=== PATIENT | female | born 1930 | race Caucasian/White ===

== ENCOUNTER 2017-01-01 20:28 | Inpatient (IN) ==
--- NOTE | 2017-01-01 20:56 | Emergency Department Note ---
Disposition Clinical Impression: Generalized weakness, Decreased appetite, Decreased ambulation status, BYRON ( acute kidney injury), Dehydration Stage II pressure ulcer of buttock Qualifiers: Laterality: right Qualified Code(s): L89.312 - Pressure ulcer of right buttock , stage 2 Pressure ulcer of unspecified buttock, stage 1 Qualifiers: Laterality: unspecified laterality Qualified Code(s): L89.301 - Pressure ulcer of unspecified buttock, stage 1 Disposition: Admitted As Inpatient Condition: Fair Referrals: NO,PCP [Primary Care Provider] - Forms: ED Satisfaction Letter Time of Disposition: 22:13 GI Bleed HPI - General Chief complaint: ED GI Bleed Stated complaint: rectal bleeding, bruising in inner thighs,bedsores Time Seen by Provider: 01/01/17 20:42 Source: family Mode of arrival: ambulatory Limitations: age Nursing Notes Reviewed: Yes Vital Signs Reviewed: Yes - History of Present Illness HPI Narrative: Patient is an 86-year-old female with past HISTORY of diabetes, hypertension, dementia. She presents today accompanied by her daughter and mattress weaver. Daughter states that the patient was recently staying in snf in [place]. She was recently brought home yesterday due to concern of improper care at the snf. Once home, daughter noticed that she was generally weak, had a bedsore on right buttocks, and lesions on the anterior thighs, also had black stools that were concerning for blood. She brought her into the ED tonight for further evaluation. She also states that the patient has not been eating well for the past 2 months. She was unaware that the situations going on the patient has been living in a nursing facility [place]. Currently, the patient denies any chest pain, shortness breath, nausea, vomiting, fevers, abdominal pain, burning with urination, blood in urine, blood in stool. Patient says she cannot remember how she got lesions on inner thighs, denies scratching. - Related Data Allergies Allergy/AdvReac Type Severity Reaction Status Date / Time No Known Allergies Allergy Verified 01/01/17 20:34 All systems ED: reviewed and negative except as stated. Past Medical History - Past Medical History Attestation: Yes The following information was validated with the patient. Medical history: Reports: diabetes, hypertension Psychiatric history: Reports: depression - Social History Smoking Status: Never smoker Alcohol use: Reports: none Drug use: Reports: none Physical Exam - General Limitations: age General appearance: alert, in no apparent distress - Head Head exam: atraumatic, normocephalic, normal inspection - Eye Eye exam: Present: normal appearance, PERRL, EOMI - ENT ENT exam: normal exam, normal oropharynx, mucous membranes moist - Neck Neck exam: Present: normal inspection, full ROM, trachea midline - Chest Chest inspection: Present: normal inspection, symmetric chest wall rise - Respiratory Respiratory exam: Present: normal lung sounds bilaterally. Absent: respiratory distress, wheezes, stridor, accessory muscle use - Cardiovascular Cardiovascular exam: Present: regular rate, normal rhythm, normal heart sounds - Abdominal Exam Abdominal exam: Present: soft, Non-Tender. Absent: tenderness, distention, guarding, rebound, rigidity - Rectal Exam Rectal exam: Present: normal rectal tone, black stool, hemorrhoids - Extremities Exam Extremities exam: Present: normal inspection, full ROM. Absent: tenderness, pedal edema - Back Exam Back exam: Present: normal inspection, full ROM. Absent: tenderness - Neurological Exam Neurological exam: Present: alert, oriented X3, CN II-XII intact. Absent: motor sensory deficit - Psychiatric Psychiatric exam: Present: normal mood, flat affect, other (pleasantly demented) - Skin Skin exam: Present: warm, dry, intact, normal color, other (Linear lesions on the inner thighs with one large excoriation on the right proximal thigh that is scabbed over, approx 4cm in length. Large stage 1 redness on bilateral gluteal region with 3cm by 2cm stage 2 ulceration of right buttocks.) Course Course Narrative: Vitals within normal limits on my exam. Physical exam showed pleasantly demented 86-year-old, skin exam shows Linear lesions on the inner thighs with one large excoriation on the right proximal thigh that is scabbed over, approx 4cm in length. Large stage 1 redness on bilateral gluteal region with 3cm by 2cm stage 2 ulceration of right buttocks. Rectal exam shows black stools, will send for hemoccult. Otherwise, the rest of the physical exam is benign. Due to generalized weakness, will obtain basic labs, EKG, chest x-ray, troponin, abdominal labs. 22:03 patient has a leukocytosis. Negative UA. BMP shows creatinine at 3.14, BUN at 60. Chest x-ray negative for any acute cardiopulmonary process. EKG shows normal sinus rhythm with no acute ST changes. Currently waiting a troponin level. Otherwise, will admit patient for dehydration, acute kidney injury, decreased stimulation status, develops weakness, stage II pressure ulcer of the right buttocks, stage I pressure ulcer of the left buttocks, malnutrition. 22:13 [facility] accepts. Requested blood cultures. 1L bolus NS ordered. Vital Signs Temperature 97.6 F 01/01/17 20:32 Pulse Rate 100 01/01/17 20:32 Respiratory Rate 18 01/01/17 20:32 Blood Pressure 133/73 01/01/17 20:32 O2 Sat by Pulse Oximetry 94 L 01/01/17 20:32 Temperature 97.6 F 01/01/17 20:32 Pulse Rate 85 01/01/17 21:41 Respiratory Rate 18 01/01/17 21:41 Blood Pressure 133/73 01/01/17 20:32 O2 Sat by Pulse Oximetry 95 01/01/17 21:41 Oxygen Delivery Oxygen Delivery Room Air GI Bleed - [facility] Narrative Medical decision making narrative: Vitals within normal limits on my exam. Physical exam showed pleasantly demented 86-year-old, skin exam shows Linear lesions on the inner thighs with one large excoriation on the right proximal thigh that is scabbed over, approx 4cm in length. Large stage 1 redness on bilateral gluteal region with 3cm by 2cm stage 2 ulceration of right buttocks. Rectal exam shows black stools, will send for hemoccult. Otherwise, the rest of the physical exam is benign. Due to generalized weakness, will obtain basic labs, EKG, chest x-ray, troponin, abdominal labs. 22:03 patient has a leukocytosis. Negative UA. BMP shows creatinine at 3.14, BUN at 60. Chest x-ray negative for any acute cardiopulmonary process. EKG shows normal sinus rhythm with no acute ST changes. Currently waiting a troponin level. Otherwise, will admit patient for dehydration, acute kidney injury, decreased stimulation status, develops weakness, stage II pressure ulcer of the right buttocks, stage I pressure ulcer of the left buttocks, malnutrition. 22:13 [facility] accepts. Requested blood cultures. 1L bolus NS ordered. - Medical Records Medical records reviewed: Yes I reviewed the patient's medical records. - Lab Data Lab results reviewed: Yes I reviewed the patient's lab results. Result diagrams: 01/01/17 21:26 01/01/17 21:26 Lab Results 01/01/17 01/01/17 01/01/17 Range/Units 20:53 21:15 21:26 WBC 14.9 H (4.3-11.1) K/mcL RBC 4.11 (3.82-4.97) M/mcL Hgb 12.0 (11.5-15.4) g/dL Hct 36.4 (35.3-44.9) % MCV 88.6 (83.0-100.0) fL MCH 29.2 (28.0-33.3) pg MCHC 33.0 (31.6-35.5) g/dL RDW 14.2 (11.5-14.5) % Plt Count 499 H (140-400) K/mcL MPV 10.2 (9.4-12.4) fL Immature Gran % 0.7 (0-4) % Seg Neutrophils % 81.6 % Lymphocytes % 9.1 % Monocytes % 8.0 % Eosinophils % 0.2 % Basophils % 0.4 % Neutrophils # 12.2 H (1.6-8.9) K/mcL Lymphocytes # 1.4 (0.6-4.6) K/mcL Monocytes # 1.2 (0.0-1.3) K/mcL Eosinophils # 0.0 (0.0-0.6) K/mcL Basophils # 0.1 (0.0-0.2) K/mcL Sodium (136-145) mEq/L Potassium (3.5-4.5) mEq/L Chloride (98-109) mEq/L Carbon Dioxide (19-29) mEq/L BUN (7-20) mg/dL Creatinine (0.57-1.11) mg/dL Est GFR ( Amer) (> 60) Est GFR (Non-Af Amer) (> 60) BUN/Creatinine Ratio (6-26) Glucose (70-99) mg/dL Calculated Osmolality (280-300) Lactic Acid (0.5-2.2) mmol/L Calcium (8.6-10.8) mg/dL Total Bilirubin (0.2-1.2) mg/dL Direct Bilirubin (0.0-0.5) mg/dL Indirect Bilirubin (0.0-1.2) mg/dL AST (5-34) Units/L ALT (0-55) Units/L Alkaline Phosphatase (38-126) Units/L Troponin I (0-0.03) ng/mL Serum Total Protein (6.0-8.3) g/dL Albumin (3.5-5.0) g/dL Globulin (2.4-3.5) g/dL Albumin/Globulin Ratio (1.1-2.2) Lipase (8-78) Units/L Urine Color Yellow (Yellow) Urine Clarity Cloudy A (Clear) Urine pH 5.0 (5.0-8.0) pH Units Ur Specific [place] 1.013 (1.010-1.025) Urine Protein Negative (Neg-Trace) mg/dL Urine Glucose (UA) Normal (Normal) mg/dL Urine Ketones Negative (Negative) mg/dL Urine Blood Negative (Negative) Urine Nitrite Negative (Negative) Urine Bilirubin Moderate H (Negative) Urine Urobilinogen Normal (Normal) mg/dL Ur Leukocyte Esterase Negative (Negative) Urine Microscopic RBC 0-3 (0-3) per hpf Urine Microscopic WBC 0-3 (0-3) per hpf Ur Squamous Epith Cells Many H (None-Few) per lpf Urine Bacteria None Seen (None-Few) per hpf Hyaline Casts None Seen (None-Few) per lpf Ur Culture Indicated? NO (NO) Stool Occult Blood Negative (Negative) 01/01/17 01/01/17 01/01/17 Range/Units 21:26 21:26 21:26 WBC (4.3-11.1) K/mcL RBC (3.82-4.97) M/mcL Hgb (11.5-15.4) g/dL Hct (35.3-44.9) % MCV (83.0-100.0) fL MCH (28.0-33.3) pg MCHC (31.6-35.5) g/dL RDW (11.5-14.5) % Plt Count (140-400) K/mcL MPV (9.4-12.4) fL Immature Gran % (0-4) % Seg Neutrophils % % Lymphocytes % % Monocytes % % Eosinophils % % Basophils % % Neutrophils # (1.6-8.9) K/mcL Lymphocytes # (0.6-4.6) K/mcL Monocytes # (0.0-1.3) K/mcL Eosinophils # (0.0-0.6) K/mcL Basophils # (0.0-0.2) K/mcL Sodium 133 L (136-145) mEq/L Potassium 3.5 (3.5-4.5) mEq/L Chloride 90 L (98-109) mEq/L Carbon Dioxide 25 (19-29) mEq/L BUN 60 H (7-20) mg/dL Creatinine 3.14 H (0.57-1.11) mg/dL Est GFR ( Amer) 17 L (> 60) Est GFR (Non-Af Amer) 14 L (> 60) BUN/Creatinine Ratio 19 (6-26) Glucose 223 H (70-99) mg/dL Calculated Osmolality 300 (280-300) Lactic Acid 2.2 (0.5-2.2) mmol/L Calcium 9.7 (8.6-10.8) mg/dL Total Bilirubin 0.6 (0.2-1.2) mg/dL Direct Bilirubin (0.0-0.5) mg/dL Indirect Bilirubin (0.0-1.2) mg/dL AST 24 (5-34) Units/L ALT 12 (0-55) Units/L Alkaline Phosphatase 57 (38-126) Units/L Troponin I 0.03 (0-0.03) ng/mL Serum Total Protein 7.4 (6.0-8.3) g/dL Albumin 2.8 L (3.5-5.0) g/dL Globulin 4.6 H (2.4-3.5) g/dL Albumin/Globulin Ratio 0.6 L (1.1-2.2) Lipase (8-78) Units/L Urine Color (Yellow) Urine Clarity (Clear) Urine pH (5.0-8.0) pH Units Ur Specific [place] (1.010-1.025) Urine Protein (Neg-Trace) mg/dL Urine Glucose (UA) (Normal) mg/dL Urine Ketones (Negative) mg/dL Urine Blood (Negative) Urine Nitrite (Negative) Urine Bilirubin (Negative) Urine Urobilinogen (Normal) mg/dL Ur Leukocyte Esterase (Negative) Urine Microscopic RBC (0-3) per hpf Urine Microscopic WBC (0-3) per hpf Ur Squamous Epith Cells (None-Few) per lpf Urine Bacteria (None-Few) per hpf Hyaline Casts (None-Few) per lpf Ur Culture Indicated? (NO) Stool Occult Blood (Negative) 01/01/17 Range/Units 21:26 WBC (4.3-11.1) K/mcL RBC (3.82-4.97) M/mcL Hgb (11.5-15.4) g/dL Hct (35.3-44.9) % MCV (83.0-100.0) fL MCH (28.0-33.3) pg MCHC (31.6-35.5) g/dL RDW (11.5-14.5) % Plt Count (140-400) K/mcL MPV (9.4-12.4) fL Immature Gran % (0-4) % Seg Neutrophils % % Lymphocytes % % Monocytes % % Eosinophils % % Basophils % % Neutrophils # (1.6-8.9) K/mcL Lymphocytes # (0.6-4.6) K/mcL Monocytes # (0.0-1.3) K/mcL Eosinophils # (0.0-0.6) K/mcL Basophils # (0.0-0.2) K/mcL Sodium (136-145) mEq/L Potassium (3.5-4.5) mEq/L Chloride (98-109) mEq/L Carbon Dioxide (19-29) mEq/L BUN (7-20) mg/dL Creatinine (0.57-1.11) mg/dL Est GFR ( Amer) (> 60) Est GFR (Non-Af Amer) (> 60) BUN/Creatinine Ratio (6-26) Glucose (70-99) mg/dL Calculated Osmolality (280-300) Lactic Acid (0.5-2.2) mmol/L Calcium (8.6-10.8) mg/dL Total Bilirubin 0.6 (0.2-1.2) mg/dL Direct Bilirubin 0.3 (0.0-0.5) mg/dL Indirect Bilirubin 0.3 (0.0-1.2) mg/dL AST 23 (5-34) Units/L ALT 13 (0-55) Units/L Alkaline Phosphatase 58 (38-126) Units/L Troponin I (0-0.03) ng/mL Serum Total Protein 7.4 (6.0-8.3) g/dL Albumin 2.8 L (3.5-5.0) g/dL Globulin 4.6 H (2.4-3.5) g/dL Albumin/Globulin Ratio 0.6 L (1.1-2.2) Lipase 32 (8-78) Units/L Urine Color (Yellow) Urine Clarity (Clear) Urine pH (5.0-8.0) pH Units Ur Specific [place] (1.010-1.025) Urine Protein (Neg-Trace) mg/dL Urine Glucose (UA) (Normal) mg/dL Urine Ketones (Negative) mg/dL Urine Blood (Negative) Urine Nitrite (Negative) Urine Bilirubin (Negative) Urine Urobilinogen (Normal) mg/dL Ur Leukocyte Esterase (Negative) Urine Microscopic RBC (0-3) per hpf Urine Microscopic WBC (0-3) per hpf Ur Squamous Epith Cells (None-Few) per lpf Urine Bacteria (None-Few) per hpf Hyaline Casts (None-Few) per lpf Ur Culture Indicated? (NO) Stool Occult Blood (Negative) - Radiology Data Radiology results reviewed: Yes I reviewed the patient's radiology results. Chest X-Ray 01/01/17 20:54 IMPRESSION: No acute cardiopulmonary abnormality detected. D/ / Han Astudillo MD / Han Astudillo MD Interpreting Provider: Han Astudillo MD - EKG Data EKG attestation: Yes I reviewed and interpreted this EKG. EKG results narrative: 01/01/2017 at 21:12. Normal sinus rhythm. Rate 77. QTC 423. No acute ST elevation or depression. Q wave in lead 2, 3, aVF. No previous EKG for comparison. S.B.A.R. - S.B.A.R. Situation: Demographics, MOA Background: Presenting Complaint, Relevant PMH, Meds, & Allergies Assessment: Vital Signs, Course and respsone to treatment, Exam Concerns, Patient/Family Expectation, Pertinant Lab Results, Outstanding Labs Recommendation: Barrier(s) to disposition, Recommendation based on pending studies, treatments, or consults Josefa Report Given to: Gina Rivero Repor Time: 22:00
[2017-01-01 21:32] LABS: Basophils # 0.1 K/mcL (0.0-0.2); Basophils % 0.4 %; Eosinophils % 0.2 %; Hematocrit 36.4 % (35.3-44.9); Immature Granulocytes % 0.7 % (0-4); Lymphocytes # 1.4 K/mcL (0.6-4.6); Lymphocytes % 9.1 %; Mean Corpuscular Hemoglobin 29.2 pg (28.0-33.3); Mean Corpuscular Volume 88.6 fL (83.0-100.0); Mean Platelet Volume 10.2 fL (9.4-12.4); Monocytes # 1.2 K/mcL (0.0-1.3); Neutrophils # 12.2 K/mcL (1.6-8.9); Platelet Count 499 K/mcL (140-400); Red Blood Count 4.11 M/mcL (3.82-4.97); Red Cell Distribution Width 14.2 % (11.5-14.5); Segmented Neutrophils % 81.6 %
[2017-01-01 21:38] LABS: Bilirubin,Urine Moderate (Negative); Blood,Urine Negative (Negative); Clarity,Urine Cloudy (Clear); Color,Urine Yellow (Yellow); Glucose,Urine (UA) Normal (Normal); Ketones,Urine Negative (Negative); Leukocyte Esterase,Urine Negative (Negative); Nitrite,Urine Negative (Negative); Protein,Urine Negative (Neg-Trace); Specific Gravity,Urine 1.013 (1.010-1.025); Urobilinogen,Urine Normal (Normal)
[2017-01-01 21:40] LABS: Bacteria,Urine None Seen per hpf (None-Few); Hyaline Casts,Urine None Seen per lpf (None-Few); RBC,Urine 0-3 per hpf (0-3); Squamous Epithelial Cell,Urine Many per lpf (None-Few); WBC,Urine 0-3 per hpf (0-3)
[2017-01-01 21:48] LABS: Albumin 2.8 g/dL (3.5-5.0); Albumin/Globulin Ratio 0.6 (1.1-2.2); Bilirubin,Total 0.6 mg/dL (0.2-1.2); Calcium 9.7 mg/dL (8.6-10.8); Globulin 4.6 g/dL (2.4-3.5); Potassium 3.5 mEq/L (3.5-4.5); Total Protein 7.4 g/dL (6.0-8.3)
[2017-01-01 21:49] LABS: Albumin 2.8 g/dL (3.5-5.0); Albumin/Globulin Ratio 0.6 (1.1-2.2); Bilirubin,Direct 0.3 mg/dL (0.0-0.5); Bilirubin,Indirect 0.3 mg/dL (0.0-1.2); Bilirubin,Total 0.6 mg/dL (0.2-1.2); Globulin 4.6 g/dL (2.4-3.5); Total Protein 7.4 g/dL (6.0-8.3)
--- NOTE | 2017-01-01 22:08 | Emergency Department Note ---
Disposition Clinical Impression: Generalized weakness, Decreased appetite, Decreased ambulation status, BYRON ( acute kidney injury), Dehydration Stage II pressure ulcer of buttock Qualifiers: Laterality: right Qualified Code(s): L89.312 - Pressure ulcer of right buttock , stage 2 Pressure ulcer of unspecified buttock, stage 1 Qualifiers: Laterality: unspecified laterality Qualified Code(s): L89.301 - Pressure ulcer of unspecified buttock, stage 1 Disposition: Admitted As Inpatient Condition: Fair Referrals: NO,PCP [Primary Care Provider] - Forms: ED Satisfaction Letter General Adult HPI - General Chief complaint: ED GI Bleed Stated complaint: rectal bleeding, bruising in inner thighs,bedsores Time Seen by Provider: 01/01/17 20:42 Source: family Mode of arrival: ambulatory Limitations: age - History of Present Illness Pain Scale: 0 - Related Data Allergies Allergy/AdvReac Type Severity Reaction Status Date / Time No Known Allergies Allergy Verified 01/01/17 20:34 Past Medical History - Past Medical History Medical history: Reports: diabetes, hypertension Psychiatric history: Reports: depression - Social History Smoking Status: Never smoker Alcohol use: Reports: none Drug use: Reports: none Physical Exam - General Limitations: age General appearance: alert, in no apparent distress Course - Reevaluation(s) Reevaluation #1: I saw the patient with the resident, Dr. Hooper. Patient is brought to the emergency department by family who took her out of the [facility] yesterday and brought her home. They noticed some bruising injuries that they wanted evaluated. They are concerned about her eating as well. Here in the department she does have some bruising and she has a mild decubitus ulcer on her buttocks. Family is concerned that she was not treated well at the previous [facility]. There was concern about black stool but the stool was guaiac negative. We believe this asked was related to iron supplements. Laboratory workup was okay except for an elevated BUN and creatinine. We have no old labs to compare it to. I am suspicious that this is acute kidney injury secondary to dehydration given the BUN of 60 as well. I think is best to bring the patient in the hospital and hydrate her overnight and make sure she is to do. Family does not want her to go back to a [facility] and preferred to care for the patient at home. We will page the hospitalist for admission. Time: 22:08 Vital Signs Temperature 97.6 F 01/01/17 20:32 Pulse Rate 100 01/01/17 20:32 Respiratory Rate 18 01/01/17 20:32 Blood Pressure 133/73 01/01/17 20:32 O2 Sat by Pulse Oximetry 94 L 01/01/17 20:32 Temperature 97.6 F 01/01/17 20:32 Pulse Rate 85 01/01/17 21:41 Respiratory Rate 18 01/01/17 21:41 Blood Pressure 133/73 01/01/17 20:32 O2 Sat by Pulse Oximetry 95 01/01/17 21:41 Oxygen Delivery Oxygen Delivery Room Air Medical Decision Making - Lab Data Result diagrams: 01/01/17 21:26 01/01/17 21:26 Lab Results 01/01/17 01/01/17 01/01/17 Range/Units 20:53 21:15 21:26 WBC 14.9 H (4.3-11.1) K/mcL RBC 4.11 (3.82-4.97) M/mcL Hgb 12.0 (11.5-15.4) g/dL Hct 36.4 (35.3-44.9) % MCV 88.6 (83.0-100.0) fL MCH 29.2 (28.0-33.3) pg MCHC 33.0 (31.6-35.5) g/dL RDW 14.2 (11.5-14.5) % Plt Count 499 H (140-400) K/mcL MPV 10.2 (9.4-12.4) fL Immature Gran % 0.7 (0-4) % Seg Neutrophils % 81.6 % Lymphocytes % 9.1 % Monocytes % 8.0 % Eosinophils % 0.2 % Basophils % 0.4 % Neutrophils # 12.2 H (1.6-8.9) K/mcL Lymphocytes # 1.4 (0.6-4.6) K/mcL Monocytes # 1.2 (0.0-1.3) K/mcL Eosinophils # 0.0 (0.0-0.6) K/mcL Basophils # 0.1 (0.0-0.2) K/mcL Sodium (136-145) mEq/L Potassium (3.5-4.5) mEq/L Chloride (98-109) mEq/L Carbon Dioxide (19-29) mEq/L BUN (7-20) mg/dL Creatinine (0.57-1.11) mg/dL Est GFR ( Amer) (> 60) Est GFR (Non-Af Amer) (> 60) BUN/Creatinine Ratio (6-26) Glucose (70-99) mg/dL Calculated Osmolality (280-300) Lactic Acid (0.5-2.2) mmol/L Calcium (8.6-10.8) mg/dL Total Bilirubin (0.2-1.2) mg/dL Direct Bilirubin (0.0-0.5) mg/dL Indirect Bilirubin (0.0-1.2) mg/dL AST (5-34) Units/L ALT (0-55) Units/L Alkaline Phosphatase (38-126) Units/L Troponin I (0-0.03) ng/mL Serum Total Protein (6.0-8.3) g/dL Albumin (3.5-5.0) g/dL Globulin (2.4-3.5) g/dL Albumin/Globulin Ratio (1.1-2.2) Lipase (8-78) Units/L Urine Color Yellow (Yellow) Urine Clarity Cloudy A (Clear) Urine pH 5.0 (5.0-8.0) pH Units Ur Specific [place] 1.013 (1.010-1.025) Urine Protein Negative (Neg-Trace) mg/dL Urine Glucose (UA) Normal (Normal) mg/dL Urine Ketones Negative (Negative) mg/dL Urine Blood Negative (Negative) Urine Nitrite Negative (Negative) Urine Bilirubin Moderate H (Negative) Urine Urobilinogen Normal (Normal) mg/dL Ur Leukocyte Esterase Negative (Negative) Urine Microscopic RBC 0-3 (0-3) per hpf Urine Microscopic WBC 0-3 (0-3) per hpf Ur Squamous Epith Cells Many H (None-Few) per lpf Urine Bacteria None Seen (None-Few) per hpf Hyaline Casts None Seen (None-Few) per lpf Ur Culture Indicated? NO (NO) Stool Occult Blood Negative (Negative) 01/01/17 01/01/17 01/01/17 Range/Units 21:26 21:26 21:26 WBC (4.3-11.1) K/mcL RBC (3.82-4.97) M/mcL Hgb (11.5-15.4) g/dL Hct (35.3-44.9) % MCV (83.0-100.0) fL MCH (28.0-33.3) pg MCHC (31.6-35.5) g/dL RDW (11.5-14.5) % Plt Count (140-400) K/mcL MPV (9.4-12.4) fL Immature Gran % (0-4) % Seg Neutrophils % % Lymphocytes % % Monocytes % % Eosinophils % % Basophils % % Neutrophils # (1.6-8.9) K/mcL Lymphocytes # (0.6-4.6) K/mcL Monocytes # (0.0-1.3) K/mcL Eosinophils # (0.0-0.6) K/mcL Basophils # (0.0-0.2) K/mcL Sodium 133 L (136-145) mEq/L Potassium 3.5 (3.5-4.5) mEq/L Chloride 90 L (98-109) mEq/L Carbon Dioxide 25 (19-29) mEq/L BUN 60 H (7-20) mg/dL Creatinine 3.14 H (0.57-1.11) mg/dL Est GFR ( Amer) 17 L (> 60) Est GFR (Non-Af Amer) 14 L (> 60) BUN/Creatinine Ratio 19 (6-26) Glucose 223 H (70-99) mg/dL Calculated Osmolality 300 (280-300) Lactic Acid 2.2 (0.5-2.2) mmol/L Calcium 9.7 (8.6-10.8) mg/dL Total Bilirubin 0.6 (0.2-1.2) mg/dL Direct Bilirubin (0.0-0.5) mg/dL Indirect Bilirubin (0.0-1.2) mg/dL AST 24 (5-34) Units/L ALT 12 (0-55) Units/L Alkaline Phosphatase 57 (38-126) Units/L Troponin I 0.03 (0-0.03) ng/mL Serum Total Protein 7.4 (6.0-8.3) g/dL Albumin 2.8 L (3.5-5.0) g/dL Globulin 4.6 H (2.4-3.5) g/dL Albumin/Globulin Ratio 0.6 L (1.1-2.2) Lipase (8-78) Units/L Urine Color (Yellow) Urine Clarity (Clear) Urine pH (5.0-8.0) pH Units Ur Specific [place] (1.010-1.025) Urine Protein (Neg-Trace) mg/dL Urine Glucose (UA) (Normal) mg/dL Urine Ketones (Negative) mg/dL Urine Blood (Negative) Urine Nitrite (Negative) Urine Bilirubin (Negative) Urine Urobilinogen (Normal) mg/dL Ur Leukocyte Esterase (Negative) Urine Microscopic RBC (0-3) per hpf Urine Microscopic WBC (0-3) per hpf Ur Squamous Epith Cells (None-Few) per lpf Urine Bacteria (None-Few) per hpf Hyaline Casts (None-Few) per lpf Ur Culture Indicated? (NO) Stool Occult Blood (Negative) 01/01/17 Range/Units 21:26 WBC (4.3-11.1) K/mcL RBC (3.82-4.97) M/mcL Hgb (11.5-15.4) g/dL Hct (35.3-44.9) % MCV (83.0-100.0) fL MCH (28.0-33.3) pg MCHC (31.6-35.5) g/dL RDW (11.5-14.5) % Plt Count (140-400) K/mcL MPV (9.4-12.4) fL Immature Gran % (0-4) % Seg Neutrophils % % Lymphocytes % % Monocytes % % Eosinophils % % Basophils % % Neutrophils # (1.6-8.9) K/mcL Lymphocytes # (0.6-4.6) K/mcL Monocytes # (0.0-1.3) K/mcL Eosinophils # (0.0-0.6) K/mcL Basophils # (0.0-0.2) K/mcL Sodium (136-145) mEq/L Potassium (3.5-4.5) mEq/L Chloride (98-109) mEq/L Carbon Dioxide (19-29) mEq/L BUN (7-20) mg/dL Creatinine (0.57-1.11) mg/dL Est GFR ( Amer) (> 60) Est GFR (Non-Af Amer) (> 60) BUN/Creatinine Ratio (6-26) Glucose (70-99) mg/dL Calculated Osmolality (280-300) Lactic Acid (0.5-2.2) mmol/L Calcium (8.6-10.8) mg/dL Total Bilirubin 0.6 (0.2-1.2) mg/dL Direct Bilirubin 0.3 (0.0-0.5) mg/dL Indirect Bilirubin 0.3 (0.0-1.2) mg/dL AST 23 (5-34) Units/L ALT 13 (0-55) Units/L Alkaline Phosphatase 58 (38-126) Units/L Troponin I (0-0.03) ng/mL Serum Total Protein 7.4 (6.0-8.3) g/dL Albumin 2.8 L (3.5-5.0) g/dL Globulin 4.6 H (2.4-3.5) g/dL Albumin/Globulin Ratio 0.6 L (1.1-2.2) Lipase 32 (8-78) Units/L Urine Color (Yellow) Urine Clarity (Clear) Urine pH (5.0-8.0) pH Units Ur Specific [place] (1.010-1.025) Urine Protein (Neg-Trace) mg/dL Urine Glucose (UA) (Normal) mg/dL Urine Ketones (Negative) mg/dL Urine Blood (Negative) Urine Nitrite (Negative) Urine Bilirubin (Negative) Urine Urobilinogen (Normal) mg/dL Ur Leukocyte Esterase (Negative) Urine Microscopic RBC (0-3) per hpf Urine Microscopic WBC (0-3) per hpf Ur Squamous Epith Cells (None-Few) per lpf Urine Bacteria (None-Few) per hpf Hyaline Casts (None-Few) per lpf Ur Culture Indicated? (NO) Stool Occult Blood (Negative) Attestation Statement - Attestation Attestation: I, Dr. Conway, examined this patient [id number] and my medical decision- making was reviewed with Dr. Hooper, Resident Physician. I agree with the documented findings, disposition and treatment plan as described except to the extent set forth below. The see my progress note for details.
[2017-01-01] MEDS ORDERED: 0.9 % Sodium Chloride 1,000 ML IVC ONE (22:12)
[2017-01-01 22:23] LABS: Thyroid Stimulating Hormone 0.434 mcIU/mL (0.350-4.840)
[2017-01-01] MEDS ORDERED: *HR* OxyCODONE Immed Rel 5 MG TABLET PO PRN (23:10)
[2017-01-01] MEDS ORDERED: *HR* Dextrose 50 % in Water (Syg) 50 ML SYRINGE IVP PRN (23:10)
[2017-01-01] MEDS ORDERED: Naloxone 0.4 MG/ML INJ IVP PRN (23:10)
[2017-01-01] MEDS ORDERED: Ondansetron 4 MG/2 ML VIAL IVP PRN (23:10)
[2017-01-01] MEDS ORDERED: Acetaminophen 325 MG TABLET PO PRN (23:10)
[2017-01-01] MEDS ORDERED: *HR* Morphine 2 MG/ML SYRINGE IVP PRN (23:10)
[2017-01-01] MEDS ORDERED: D5% in Water 1,000 ML IV PRN (23:10)
[2017-01-01] MEDS ORDERED: Dextrose Gel 15 GM PO PRN ×2 (23:10)
[2017-01-01] MEDS ORDERED: 0.9 % Sodium Chloride 1,000 ML IVC SCH (23:15)
--- NOTE | 2017-01-01 23:46 | Internal Med History&Physical ---
Date of Encounter: 01/01/17 Time of Encounter: 23:00 Assessment and Plan (1) Adult failure to thrive Status: Acute . (2) At risk for accident in home Status: Acute . (3) At risk for activity intolerance Status: Acute . (4) At risk for acute confusion Status: Acute . (5) Dementia arising in the senium and presenium Status: Chronic . (6) Obesity (BMI 30-39.9) Status: Chronic . (7) Decreased appetite Status: Acute . (8) Dehydration Status: Resolved . (9) Generalized weakness Status: Acute . (10) Pressure ulcer of unspecified buttock, stage 1 Status: Acute . Qualifiers: Laterality: unspecified laterality Qualified Code(s): L89.301 - Pressure ulcer of unspecified buttock, stage 1 (11) Stage II pressure ulcer of buttock Status: Acute . Qualifiers: Laterality: right Qualified Code(s): L89.312 - Pressure ulcer of right buttock, stage 2 Internal Medicine - H&P: HPI Chief complaint: Bedsores. Generalized weakness. Admitted From: Emergency Dept Plans for Post Hospital Care: Home History of present illness: Ms. Prescott is a 86 year old female with history significant for dementia unspecified, type 2 DM, depression and anxiety, iron deficiency, anemia chronic disease, GERD, hypertension, obesity, nonsmoker The patient was visited and interviewed and examined. Patient presents as a non -historian of circumstances due to apparent dementia unspecified. Details are collected from family and emergency department triage patient. The patient is admitted to [facility] via the emergency department when she presents in the company of family with concerns related failure to thrive in adult. Daughter presents as caregiver next 10 reporting the patient had recently been in halfway in [place] and was removed on the day of presenting to this facility pertaining to concern over the care she received there. Daughter reports generalized weakness diminished appetite and decreased ambulation status , bedsores right buttock lesions on the anterior thighs and no black stools concerning for blood diminished appetite has been progressive over the last 2 months. The patient presents with advanced dementia and denies any significant problems. Simply states that she cannot remember. Cannot remember how she received lesions on her inner thighs denies active scratching. Findings in the ED: Temperature 97.6 pulse 85-100 respiration 18 BP 133/73. O2 saturation 95% room air. WBC 14.9 hemoglobin 12 platelet 499,000. Differential showed an increase in neutrophils. Urinalysis demonstrated moderate bilirubin. RBC 3. WBC 3.many squamous epithelial cells. Metabolic panel sodium 133 chloride 90. BUN 16 creatinine 3.14. GFR 14. Glucose 223 possible elevated 300. Lactic acid 2.2. Hepatic function normal. Albumin 2.8 total 7.4. Troponin 0.03. Lipase 32. EKG normal sinus rhythm. Rate 77. No acute ischemic changes. Q-wave lead to 3 aVF 8 indeterminate event. We will injury. Portable chest x-ray demonstrated no acute or active cardiopulmonary process. Degenerative changes are noted incidentally. No acute osseous abnormalities seen. Preliminary impression demonstrates concern for black stool and potential bleeding was likely due to chronic iron supplementation for iron deficiency anemia. No evidence for active bleeding though I need an EGD. Multiple decubitus ulceration of her pillbox noted. Acute on chronic renal failure stage 5.. Likely prerenal and secondary to severe dehydration. Systemic inflammatory response syndrome criteria met at the time of admission. Patient is acute on chronically ill. No evidence for acute infection issue been disclosed. Modest electrolyte and metabolic derangements noted. She presents as a non-historian of [facility] due to moderate to severe dementia. The patient presents risk for further acute clinical decline and morbidity given her presenting chief complaints, findings and comorbid condition. Cumulative laboratory and radiographic data base was reviewed, considered and discussed. Pertinent ancillary medical records including ECW and PCI documentation was reviewed and considered. Given the patient's presenting concerns, past medical history, clinical findings and symptoms, she is admitted at this time will undergo further evaluation and disposition. Orders were written as per the computerized physician food service order clerk system.......................................................................... .................... Consultative opinions will be sought as clinical circumstances justify. Obtain available outpatient records and halfway records for review. director of rehabilitative services/case management consultation. Wound care consultation. Pain management needs will be addressed. Laboratory and radiographic data base will be updated as appropriate. Studies include: hemoccult, UA, cardiac injury panel, BNP, PT/INR,APTT, metabolic and hematologic panel, magnesium, phosphorus, ionized calcium, thyroid panel, lipid profile, A1c, C-peptide, CRP, sed rate, blood gas, lactic acid, B12, folate, iron panel, vit d panel, serologies, etc. Precautions: Aspiration, fall, delirium protocol/surveillance initiated. Telemetry with continuous hemodynamic monitoring and pulse oximetry initiated. Orthostatic vital sign. Empiric antibody coverage: Intravenous Rocephin and azithromycin pending culture data. Special studies: CT chest/abd/pelvis/head, chest x-ray, telemetry, EKG, bladder scan, postvoid. Pulmonary toilet: Incentive spirometry, aerosol bronchodilator, mucolytic, antitussive, supplemental oxygen. Corticosteroid therapy. CPAP/BiPAP supplemental oxygen delivery employed. Aerosol Mucomyst therapy may be employed. Fluid and electrolyte repletion efforts will proceed. Careful attention to fluid balance and renal recovery will be emphasized. Avoidance of nephrotoxic exposure and adverse drug drug interaction in the setting of impaired renal function will be monitored closely. Acute coronary syndrome protocol/surveillance initiated. DVT and PUD prophylaxis initiated: PPI therapy, intermittent pneumatic cuffs. Subcutaneous heparin was held due to thrombocytopenia. Early ambulation will be encouraged. Immunization updates recommended. Influenza and pneumococcal vaccinations as part of ongoing preventative healthcare recommendations strongly recommended. Smoking cessation counseling briefly addressed. Patient is a nonsmoker. Advanced care directive discussion briefly addressed. Patient does not declare any healthcare restrictions at this time. Cardiovascular risk appraisal and cardiovascular risk reduction efforts will be emphasized. Physical and occupational therapy may be consulted to evaluate/assess patient's functional capacity and progress mobility as circumstances permit. Sliding scale insulin coverage, ADA dietary restraint and schedule an as-needed basis fingerstick glucose assessments were initiated. Nutrition/diabetes education counseling may be considered as circumstances justify. Outpatient medication schedules will be reviewed, confirmed and facilitated as appropriate. Reconciliation of home treatments including adjustments, substitutions and reintroduction into the treatment regimen will address necessary maintenance therapies for chronic pre-existing medical conditions. Plan of care has been reviewed and discussed in detail with the patient. Questions addressed. Hospital course dictated by clinical findings, treatment response and potential consultative interventions. Patient is at risk for further acute clinical decline and morbidity due to her age, chief complaints and comorbid conditions. Condition is serious. Prognosis is guarded. CODE STATUS is full. Past Med Surg Social Fam HX - Past Medical History Source: old records reviewed Medical history: arthritis, dementia, diabetes, hypertension, osteoporosis, other (Iron deficiency anemia) Psychiatric history: anxiety, depression - Past Surgical History Surgical History: non-contributory, other - Social History Smoking Status: Never smoker Alcohol use: none Drug use: none Occupational status: retired Current living situation: With Family Activity Level: Independent ambulation, Mostly sedentary Recent Out of Country Travel Within the Last 8 Weeks: No Exposure or Possible Exposure to Illness During Travel: No Internal Medicine - H&P: Meds Amlodipine [Norvasc] 5 mg PO DAILY 01/01/17 [History] Aspirin 81 mg PO DAILY 01/01/17 [History] Citalopram [CeleXA] 20 mg PO DAILY 01/01/17 [History] Ferrous Sulfate 325 mg PO BIDWM 01/01/17 [History] Furosemide [Lasix] 20 mg PO QMWF 01/01/17 [History] GlipiZIDE [Glipizide ER] 10 mg PO DAILY 01/01/17 [History] Metformin HCl [Glucophage] 1,000 mg PO DAILY 01/01/17 [History] Folic Acid 1 mg PO DAILY #30 tablet 01/05/17 [Rx] Allergies No Known Allergies Allergy (Verified 01/01/17 20:34) ROS unobtainable: due to mental status All Systems PM: A 10-system review of systems was performed and is negative for pertinent findings except as documented above in the HPI. The patient presents as a non- historian of clinical circumstances of the events due to underlying dementia. Details are collected from records, triage and family. - Constitutional Constitutional: as per HPI - EENT Eyes: as per HPI Ears: as per HPI Nose, mouth and throat: as per HPI - Cardiovascular Cardiovascular ROS IM: as per HPI - Respiratory Respiratory: as per HPI - Gastrointestinal Gastrointestinal: as per HPI - Genitourinary Genitourinary: as per HPI Menstruation: as per HPI - Musculoskeletal Musculoskeletal ROS IM: as per HPI - Integumentary Integumentary IM: as per HPI - Neurological Neurological ROS: as per HPI - Psychiatric Psychiatric: as per HPI - Endocrine Endocrine IM: as per HPI - Hematologic/Lymphatic Hematologic/Lymphatic: as per HPI - Allergic/Immunologic Allergic/Immunologic: as per HPI - Constitutional Vitals: Temp Pulse Resp BP Pulse Ox 97.6 F 85 18 133/73 95 01/01/17 20:32 01/01/17 21:41 01/01/17 21:41 01/01/17 20:32 01/01/17 21:41 General appearance: Present: disheveled, A&O X 2, mild distress, obese - Head Head exam: Present: atraumatic, normocephalic - Eye Eye exam: Present: normal appearance, PERRL, conjuntiva pink, sclera anicteric Pupils: Present: normal accommodation, PERRL - ENT ENT exam: Present: mucous membranes moist, normal oropharynx - Neck Neck exam general surgery: Present: full ROM, supple, trachea midline. Absent: lymphadenopathy, tenderness, nuchal rigidity - Respiratory Respiratory exam: Present: decreased breath sounds, CTAB. Absent: accessory muscle use, rales, rhonchi, wheezes - Cardiovascular Cardiovascular exam: Present: distant heart sounds, RRR, +S1, +S2. Absent: diastolic murmur, gallop, rubs, systolic murmur - GI/Abdominal GI/Abdominal exam: Present: normal bowel sounds, soft, no peritoneal signs. Absent: distended, tenderness - Extremities Exam Extremities exam: Present: full ROM, warm, radial pulses palpable and symetrical. Absent: calf tenderness, cyanotic, pedal edema - Neurological Exam Neurological exam: Present: alert, altered, CN II-XII intact, oriented X3, no focal deficits. Absent: pronater drift, facial droop, speech deficit - Psychiatric Psychiatric exam: Present: flat affect, normal mood - Skin Skin exam: Present: dry, excoriation, intact, warm Internal Med - H&P Results - Labs CBC & Chem 7: 01/03/17 06:15 01/05/17 04:08 - Impressions Vital Signs Temp Pulse Resp BP Pulse Ox 01/01/17 21:41 85 18 95 01/01/17 20:32 97.6 F 100 18 133/73 94 L Intake and Output 01/01/17 01/01/17 01/01/17 07:59 15:59 23:59 Other: Weight 78.471 kg Patient Weight 01/01/17 23:59 Weight 78.471 kg Short CBC 01/01/17 Range/Units 21:26 WBC 14.9 H (4.3-11.1) K/mcL Hgb 12.0 (11.5-15.4) g/dL Hct 36.4 (35.3-44.9) % Plt Count 499 H (140-400) K/mcL Neutrophils # 12.2 H (1.6-8.9) K/mcL BMP 01/01/17 Range/Units 21:26 Sodium 133 L (136-145) mEq/L Potassium 3.5 (3.5-4.5) mEq/L Chloride 90 L (98-109) mEq/L Carbon Dioxide 25 (19-29) mEq/L BUN 60 H (7-20) mg/dL Creatinine 3.14 H (0.57-1.11) mg/dL Glucose 223 H (70-99) mg/dL Calcium 9.7 (8.6-10.8) mg/dL Cardiac Enzymes 01/01/17 Range/Units 21:26 Troponin I 0.03 (0-0.03) ng/mL Liver Function 01/01/17 01/01/17 Range/Units 21:26 21:26 Total Bilirubin 0.6 0.6 (0.2-1.2) mg/dL Direct Bilirubin 0.3 (0.0-0.5) mg/dL AST 23 24 (5-34) Units/L ALT 13 12 (0-55) Units/L Alkaline Phosphatase 58 57 (38-126) Units/L Albumin 2.8 L 2.8 L (3.5-5.0) g/dL Urine 01/01/17 Range/Units 21:15 Urine Color Yellow (Yellow) Urine Clarity Cloudy A (Clear) Urine pH 5.0 (5.0-8.0) pH Units Ur Specific [place] 1.013 (1.010-1.025) Urine Protein Negative (Neg-Trace) mg/dL Urine Glucose (UA) Normal (Normal) mg/dL Abnormal lab results WBC 14.9 K/mcL (4.3-11.1) H 01/01/17 21:26 Plt Count 499 K/mcL (140-400) H 01/01/17 21:26 Neutrophils # 12.2 K/mcL (1.6-8.9) H 01/01/17 21:26 Sodium 133 mEq/L (136-145) L 01/01/17 21:26 Chloride 90 mEq/L (98-109) L 01/01/17 21:26 BUN 60 mg/dL (7-20) H 01/01/17 21:26 Creatinine 3.14 mg/dL (0.57-1.11) H 01/01/17 21:26 Est GFR ( Amer) 17 (> 60) L 01/01/17 21:26 Est GFR (Non-Af Amer) 14 (> 60) L 01/01/17 21:26 Glucose 223 mg/dL (70-99) H 01/01/17 21:26 Albumin 2.8 g/dL (3.5-5.0) L 01/01/17 21: Globulin 4.6 g/dL (2.4-3.5) H 01/01/17 21: Albumin/Globulin Ratio 0.6 (1.1-2.2) L 01/01/17 21:26 Urine Clarity Cloudy (Clear) A 01/01/17 21:15 Urine Bilirubin Moderate (Negative) H 01/01/17 21:15 Ur Squamous Epith Cells Many per lpf (None-Few) H 01/01/17 21:15 Abnormal lab results WBC 14.9 K/mcL (4.3-11.1) H 01/01/17 21:26 Plt Count 499 K/mcL (140-400) H 01/01/17 21: Neutrophils # 12.2 K/mcL (1.6-8.9) H 01/01/17 21:26 Sodium 133 mEq/L (136-145) L 01/01/17 21:26 Chloride 90 mEq/L (98-109) L 01/01/17 21:26 BUN 60 mg/dL (7-20) H 01/01/17 21:26 Creatinine 3.14 mg/dL (0.57-1.11) H 01/01/17 21:26 Est GFR ( Amer) 17 (> 60) L 01/01/17 21:26 Est GFR (Non-Af Amer) 14 (> 60) L 01/01/17 21:26 Glucose 223 mg/dL (70-99) H 01/01/17 21:26 Albumin 2.8 g/dL (3.5-5.0) L 01/01/17 21: Globulin 4.6 g/dL (2.4-3.5) H 01/01/17 21:26 Albumin/Globulin Ratio 0.6 (1.1-2.2) L 01/01/17 21:26 Urine Clarity Cloudy (Clear) A 01/01/17 21:15 Urine Bilirubin Moderate (Negative) H 01/01/17 21:15 Ur Squamous Epith Cells Many per lpf (None-Few) H 01/01/17 21:15 Allergies Allergy/AdvReac Type Severity Reaction Status Date / Time No Known Allergies Allergy Verified 01/01/17 20:34 Laboratory Results WBC 14.9 K/mcL (4.3-11.1) H 01/01/17 21:26 RBC 4.11 M/mcL (3.82-4.97) 01/01/17 21: Hgb 12.0 g/dL (11.5-15.4) 01/01/17 21: Hct 36.4 % (35.3-44.9) 01/01/17 21: MCV 88.6 fL (83.0-100.0) 01/01/17 21: MCH 29.2 pg (28.0-33.3) 01/01/17 21: MCHC 33.0 g/dL (31.6-35.5) 01/01/17 21: RDW 14.2 % (11.5-14.5) 01/01/17 21: Plt Count 499 K/mcL (140-400) H 01/01/17 21:26 MPV 10.2 fL (9.4-12.4) 01/01/17 21:26 Immature Gran % 0.7 % (0-4) 01/01/17 21: Seg Neutrophils % 81.6 % 01/01/17 21:26 Lymphocytes % 9.1 % 01/01/17 21: Monocytes % 8.0 % 01/01/17 21:26 Eosinophils % 0.2 % 01/01/17 21: Basophils % 0.4 % 01/01/17 21:26 Neutrophils # 12.2 K/mcL (1.6-8.9) H 01/01/17 21:26 Lymphocytes # 1.4 K/mcL (0.6-4.6) 01/01/17 21: Monocytes # 1.2 K/mcL (0.0-1.3) 01/01/17 21:26 Eosinophils # 0.0 K/mcL (0.0-0.6) 01/01/17 21:26 Basophils # 0.1 K/mcL (0.0-0.2) 01/01/17 21:26 Sodium 133 mEq/L (136-145) L 01/01/17 21:26 Potassium 3.5 mEq/L (3.5-4.5) 01/01/17 21:26 Chloride 90 mEq/L (98-109) L 01/01/17 21:26 Carbon Dioxide 25 mEq/L (19-29) 01/01/17 21:26 BUN 60 mg/dL (7-20) H 01/01/17 21:26 Creatinine 3.14 mg/dL (0.57-1.11) H 01/01/17 21:26 Est GFR ( Amer) 17 (> 60) L 01/01/17 21:26 Est GFR (Non-Af Amer) 14 (> 60) L 01/01/17 21:26 BUN/Creatinine Ratio 19 (6-26) 01/01/17 21:26 Glucose 223 mg/dL (70-99) H 01/01/17 21:26 Calculated Osmolality 300 (280-300) 01/01/17 21:26 Lactic Acid 2.2 mmol/L (0.5-2.2) 01/01/17 21:26 Calcium 9.7 mg/dL (8.6-10.8) 01/01/17 21:26 Total Bilirubin 0.6 mg/dL (0.2-1.2) 01/01/17 21:26 Direct Bilirubin 0.3 mg/dL (0.0-0.5) 01/01/17 21:26 Indirect Bilirubin 0.3 mg/dL (0.0-1.2) 01/01/17 21:26 AST 24 Units/L (5-34) 01/01/17 21:26 ALT 12 Units/L (0-55) 01/01/17 21:26 Alkaline Phosphatase 57 Units/L (38-126) 01/01/17 21:26 Troponin I 0.03 ng/mL (0-0.03) 01/01/17 21:26 Serum Total Protein 7.4 g/dL (6.0-8.3) 01/01/17 21:26 Albumin 2.8 g/dL (3.5-5.0) L 01/01/17 21:26 Globulin 4.6 g/dL (2.4-3.5) H 01/01/17 21:26 Albumin/Globulin Ratio 0.6 (1.1-2.2) L 01/01/17 21:26 Lipase 32 Units/L (8-78) 01/01/17 21:26 TSH 0.434 mcIU/mL (0.350-4.840) 01/01/17 21:26 Urine Color Yellow (Yellow) 01/01/17 21:15 Urine Clarity Cloudy (Clear) A 01/01/17 21: Urine pH 5.0 pH Units (5.0-8.0) 01/01/17 21:15 Ur Specific [place] 1.013 (1.010-1.025) 01/01/17 21:15 Urine Protein Negative mg/dL (Neg-Trace) 01/01/17 21:15 Urine Glucose (UA) Normal mg/dL (Normal) 01/01/17 21:15 Urine Ketones Negative mg/dL (Negative) 01/01/17 21:15 Urine Blood Negative (Negative) 01/01/17 21:15 Urine Nitrite Negative (Negative) 01/01/17 21:15 Urine Bilirubin Moderate (Negative) H 01/01/17 21:15 Urine Urobilinogen Normal mg/dL (Normal) 01/01/17 21:15 Ur Leukocyte Esterase Negative (Negative) 01/01/17 21:15 Urine Microscopic RBC 0-3 per hpf (0-3) 01/01/17 21:15 Urine Microscopic WBC 0-3 per hpf (0-3) 01/01/17 21:15 Ur Squamous Epith Cells Many per lpf (None-Few) H 01/01/17 21:15 Urine Bacteria None Seen per hpf (None-Few) 01/01/17 21:15 Hyaline Casts None Seen per lpf (None-Few) 01/01/17 21:15 Ur Culture Indicated? NO (NO) 01/01/17 21:15 Stool Occult Blood Negative (Negative) 01/01/17 20:53 Impressions Chest X-Ray 01/01/17 20:54 IMPRESSION: No acute cardiopulmonary abnormality detected. D/ / Han Astudillo MD / Han Astudillo MD Interpreting Provider: Han Astudillo MD
[2017-01-02] MEDS: Insulin LISPRO 300 UNITS/3 ML VIAL SQ SCH ×5 (00:44→21:17)
[2017-01-02 01:16] LABS: VBG HCO3 34.8 mEq/L (21-27); VBG PH 7.46 pH Units (7.32-7.42)
[2017-01-02] MEDS: Insulin DETEMIR 100 UNIT/ML X5UNITS SQ SCH ×2 (01:32→21:18)
[2017-01-02 01:35] LABS: Calcium 9.6 mg/dL (8.6-10.8); Chol/HDL Ratio 6.1 (0-4.9); Magnesium 1.7 mg/dL (1.6-2.6); Phosphorous 2.6 mg/dL (2.3-4.7); Potassium 3.2 mEq/L (3.5-4.5)
[2017-01-02 02:08] LABS: Hemoglobin A1C 6.7 %
[2017-01-02 02:09] LABS: Folate 4.8 ng/mL (7.0-31.4)
[2017-01-02 02:24] LABS: Ionized Calcium 1.14 mmol/L (1.15-1.35)
[2017-01-02 03:05] LABS: Thyroid Stimulating Hormone 0.333 mcIU/mL (0.350-4.840)
[2017-01-02] MEDS: *HR* Heparin 5,000 UNIT/ML VIAL SQ SCH ×2 (06:04→18:13)
[2017-01-02] MEDS: Aspirin 81 MG TAB.CHEW PO SCH (08:39)
[2017-01-02] MEDS: amLODIPine 5 MG TABLET PO SCH (08:40)
[2017-01-02] MEDS: 0.9 % Sodium Chloride 1,000 ML IVC SCH ×2 (10:53→21:27)
--- NOTE | 2017-01-02 11:33 | Internal Med Progress Note ---
Date of Encounter: 01/02/17 Time of Encounter: 08:50 - Assessment and plan (1) Acute kidney injury superimposed on CKD Current Visit: Yes Status: Acute Assessment and plan: Creatinine slightly improved today. Continue output. Monitor renal function. Continue IV hydration. (2) Adult failure to thrive Current Visit: Yes Status: Acute Assessment and plan: Supportive care. Nutrition consult (3) Dehydration Current Visit: Yes Status: Acute Assessment and plan: Continue IV hydration (4) Generalized weakness Current Visit: Yes Status: Acute Assessment and plan: PT/Ot. wax ball knock out worker consult. (5) Stage II pressure ulcer of buttock Current Visit: Yes Status: Acute Assessment and plan: Wound care. No Signs of infection. Follow wound nurse recommendations Qualifiers: Laterality: right Qualified Code(s): L89.312 - Pressure ulcer of right buttock, stage 2 - Subjective Interval history: Patient is awake and alert. Appears comfortable. Denies any new complaints at this time. No fever or chills reported overnight. No nausea or vomiting. No cough or shortness of breath. Does complain of bedsores. - Constitutional Vitals: Temp Pulse Resp BP Pulse Ox 98.5 F 83 16 123/70 93 L 01/02/17 08:30 01/02/17 08:30 01/02/17 08:30 01/02/17 08:30 01/02/17 09:31 General appearance: Present: cooperative, A&O X 2, pleasant, obese - Respiratory Respiratory exam: Present: CTAB. Absent: accessory muscle use, rales, rhonchi, wheezes - Cardiovascular Cardiovascular exam: Present: RRR, +S1, +S2. Absent: diastolic murmur, gallop, rubs, systolic murmur - GI/Abdominal GI/Abdominal exam: Present: normal bowel sounds, soft, no peritoneal signs. Absent: distended, tenderness - Extremities Exam Extremities exam: Present: warm, radial pulses palpable and symetrical. Absent : calf tenderness, cyanotic, pedal edema - Neurological Exam Neurological exam: Present: alert, no focal deficits. Absent: facial droop, speech deficit - Skin Skin exam: Present: dry, intact Internal Medicine: Result - Labs CBC & Chem 7: 01/02/17 00:56 01/02/17 00:56 Labs: BMP 01/02/17 00:56 Sodium 132 L Potassium 3.2 L Chloride 91 L Carbon Dioxide 26 BUN 60 H Creatinine 2.98 H Glucose 179 H Calcium 9.6 Cardiac Enzymes 01/02/17 01/02/17 Range/Units 00:56 05:41 Troponin I 0.04 H* 0.04 H* (0-0.03) ng/mL Consult Discharge Plan - Plan Referrals: NO,PCP [Primary Care Provider] - - Attending Attestation This document has been at least partially created by [employer] recognition technology by Dr. Blankenship. Errors in grammar, wording or other phrases may exist. If errors are found after the documentation is signed, they will be addressed individually in the addendum section of this document when appropriate.
--- NOTE | 2017-01-02 11:35 | Nephrology Consult Note ---
Date of Encounter: 01/02/17 Time of Encounter: 11:23 Assessment and Plan (1) Acute kidney injury superimposed on CKD Current Visit: Yes Status: Acute Patient presented to hospital with a serum creatinine initially of 3.14, today 2.98. Looking back through the patient's outpatient labs, she had a serum creatinine of 1.7 in November and 1.3 in September 2016. It would appear based on her GFR that the patient has had stage III chronic kidney disease for at least the past several months. Family has stated that the patient has not been eating or drinking adequately for approximately 2 months. Patient was also on several medications that could further add to her acute kidney injury including Lasix, losartan, hydrochlorothiazide, and metformin. Clinically, patient appears very dehydrated and her source of her acute kidney injury may be prerenal in nature. She has had a slight improvement in her serum creatinine overnight with gentle IV fluid hydration. We will continue acute kidney injury and chronic kidney disease workup including creatinine kinase, uric acid, urine creatinine/urine sodium, AMA, complement factor CIII and C4, serum peptide electrophoresis, and renal ultrasound. Continue gentle IV fluid rehydration and avoid nephrotoxic agents if possible. No indication for renal replacement therapy at this time. (2) Hypokalemia Current Visit: Yes Status: Acute Hypokalemia at 3.2. Patient refused oral potassium. We will replete with IV potassium as this is expected to decrease further with IV fluid rehydration. (3) Hyponatremia Current Visit: Yes Status: Acute Appears to be hypovolemic hyponatremia as the patient is significantly dehydrated. Should anticipate an increase in serum sodium with IV fluid hydration. (4) Non-insulin dependent type 2 diabetes mellitus Current Visit: Yes Status: Chronic Home medications include metformin as well as glipizide. Given the patient's stage III CKD and her GFR approaching less than 30 would recommend discontinuing metformin on discharge. (5) HTN (hypertension) Current Visit: Yes Status: Chronic Currently the patient's losartan as well as hydrochlorothiazide have been held. Blood pressures remained stable 123/70. Continue to monitor closely. Qualifiers: Hypertension type: essential hypertension Qualified Code(s): I10 - Essential (primary) hypertension History of Present Illness - Reason for Consult Consult date: 01/02/17 Acute Kidney Injury Requesting physician: Joceline Blankenship - Chief Complaint BYRON - History of Present Illness Ms. Prescott is an 86-year-old female with a past medical history of non-insulin- dependent diabetes mellitus, hypertension, dementia, and CKD stage III who was brought to the emergency department by her family for hematemesis/melena, generalized weakness, and decubitus ulcer. Patient is a resident at a fci in [facility]. Family has recently been concerned about her care as they noticed multiple areas of bruising along with a rapidly progressing bedsore. Family brought the patient home due to these concerns and during routine bathroom use noticed black tarry stool along with an episode of "coffee ground emesis." The patient is originally from [place] and has not had any healthcare in the [place] system and thus no previous labs. Nephrology was consulted for acute kidney injury on questionable chronic kidney disease. Family was able to obtain labs from the fci which revealed a serum creatinine of 1.7 from December 03 and a serum creatinine of 1.3 dated back to September 2016. Looking further back in her labs, it appears that patient has been in stage III kidney disease for at least the last several months. On presentation to the emergency department patient's serum creatinine was found to be 3.14, and mildly hyponatremic with a sodium of 133. Family denies any known history of renal disease and states that the patient was seen by the fci physician over the last several months. On examination of the patient, she is resting comfortably in bed with no acute complaints. She denies any [id number] NSAID use or recent oral antibiotic use. Family states that she has not been eating or drinking adequately for approximately 2 months and appears dehydrated. Past Med Surg Social Fam HX - Past Medical History Medical history: arthritis, dementia, diabetes, hypertension, osteoporosis, renal disease (CKDIII), other (Iron deficiency anemia) Psychiatric history: anxiety, depression - Past Surgical History Surgical History: non-contributory - Social History Smoking Status: Never smoker Smokeless Tobacco Status: No Alcohol use: none Drug use: none Medications and Allergies Amlodipine [Norvasc] 5 mg PO DAILY 01/01/17 [History] Aspirin 81 mg PO DAILY 01/01/17 [History] Citalopram [CeleXA] 20 mg PO DAILY 01/01/17 [History] Ferrous Sulfate 325 mg PO BIDWM 01/01/17 [History] Furosemide [Lasix] 20 mg PO QMWF 01/01/17 [History] GlipiZIDE [Glipizide ER] 10 mg PO DAILY 01/01/17 [History] Hydrochlorothiazide 25 mg PO DAILY 01/01/17 [History] Losartan Potassium [Cozaar] 100 mg PO DAILY 01/01/17 [History] Metformin HCl [Glucophage] 1,000 mg PO DAILY 01/01/17 [History] Allergies No Known Allergies Allergy (Verified 01/01/17 20:34) Review of Systems All Systems: reviewed and no additional remarkable complaints except as stated Exam - Vital Signs Vital signs: Initial Vital Signs Temp Pulse Resp BP Pulse Ox 97.6 F 100 18 133/73 94 L 01/01/17 20:32 01/01/17 20:32 01/01/17 20:32 01/01/17 20:32 01/01/17 20:32 Vital Signs - Last 8 Hours Temp Pulse Resp BP Pulse Ox 01/02/17 09:31 93 L 01/02/17 08:30 98.5 F 83 16 123/70 93 L 01/02/17 03:51 98.3 F 82 18 126/68 93 L Intake and Output 01/01/17 01/02/17 01/02/17 23:59 07:59 15:59 Intake Total 1000 / 1000 Output Total 600 / 600 Balance -600 / -600 1000 / 1000 Intake: IV Fluids 1000 / 1000 0.9 % Sodium Chloride 1, 1000 / 1000 000 ML @ 50 mls/hr IVC . Q20H [facility] Rx#:[id number] Output: Urine 600 / 600 Other: Weight 75.3 kg Blood Glucose* 191 60 Patient Weight 01/02/17 23:59 Weight 75.3 kg - General Appearance Exam: General: Patient is alert and in no acute distress HEENT: NC/AT, PERRLA, EOMI, nares patent, mucous membranes dry, throat not injected, no JVD, trachea midline CV: RRR without murmur Respiratory: LCTAB without wheezes/rales/rhonchi Abdomen: Soft, obese, nondistended, nontender, bowel sounds x4 Extremities: Warm, dry, trace LE edema Neuro: A&Ox2, CNII-XII normal as tested Results - Lab Results 01/02/17 00:56 01/02/17 00:56 Most recent lab results Calcium 9.6 mg/dL (8.6-10.8) 01/02/17 00:56 Phosphorus 2.6 mg/dL (2.3-4.7) 01/02/17 00:56 Magnesium 1.7 mg/dL (1.6-2.6) 01/02/17 00:56 Consult Discharge Plan - Plan Referrals: NO,PCP [Primary Care Provider] -
[2017-01-02 12:09] LABS: Basophils # 0.1 K/mcL (0.0-0.2); Basophils % 0.4 %; Eosinophils % 0.2 %; Hematocrit 34.2 % (35.3-44.9); Immature Granulocytes % 0.6 % (0-4); Lymphocytes # 2.3 K/mcL (0.6-4.6); Lymphocytes % 15.5 %; Mean Corpuscular HGB Conc 32.2 g/dL (31.6-35.5); Mean Corpuscular Hemoglobin 29.4 pg (28.0-33.3); Mean Corpuscular Volume 91.4 fL (83.0-100.0); Mean Platelet Volume 11.2 fL (9.4-12.4); Monocytes # 1.2 K/mcL (0.0-1.3); Neutrophils # 11.3 K/mcL (1.6-8.9); Platelet Count 503 K/mcL (140-400); Red Blood Count 3.74 M/mcL (3.82-4.97); Red Cell Distribution Width 14.6 % (11.5-14.5); Segmented Neutrophils % 75.3 %
[2017-01-02 12:17] LABS: Uric Acid 11.8 mg/dL (2.6-6.0)
--- NOTE | 2017-01-02 14:59 | Electrocardiograph Report ---
[address] [address] Test Date: 2017-01-01 Pat Name: Tessy Prescott Department: 103 Room: 2A Gender: F Residential Mental Health Worker: : 1930 Requested By: Jeffy Hooper Order Number: [id number] Reading MD: Ann Ruano Measurements Intervals [place] Rate: 77 P: 52 KS: 161 QRS: -3 QRSD: 81 T: 23 QT: 391 QTc: 423 Interpretive Statements SINUS RHYTHM Electronically Signed On 01-02-2017 14:57:42 EST by Ann Ruano
[2017-01-03 06:34] LABS: Basophils # 0.1 K/mcL (0.0-0.2); Basophils % 0.6 %; Eosinophils # 0.4 K/mcL (0.0-0.6); Hematocrit 32.7 % (35.3-44.9); Hemoglobin 10.7 g/dL (11.5-15.4); Immature Granulocytes % 0.4 % (0-4); Lymphocytes # 2.3 K/mcL (0.6-4.6); Lymphocytes % 25.1 %; Mean Corpuscular HGB Conc 32.7 g/dL (31.6-35.5); Mean Corpuscular Hemoglobin 28.9 pg (28.0-33.3); Mean Corpuscular Volume 88.4 fL (83.0-100.0); Mean Platelet Volume 10.4 fL (9.4-12.4); Monocytes # 1.2 K/mcL (0.0-1.3); Monocytes % 13.1 %; Neutrophils # 5.1 K/mcL (1.6-8.9); Platelet Count 437 K/mcL (140-400); Red Cell Distribution Width 14.2 % (11.5-14.5); Segmented Neutrophils % 56.8 %
[2017-01-03 06:50] LABS: Potassium 3.3 mEq/L (3.5-4.5)
[2017-01-03] MEDS: Insulin LISPRO 300 UNITS/3 ML VIAL SQ SCH ×4 (09:06→20:04)
[2017-01-03] MEDS: Aspirin 81 MG TAB.CHEW PO SCH (09:08)
[2017-01-03] MEDS: amLODIPine 5 MG TABLET PO SCH (09:08)
[2017-01-03] MEDS: *HR* Heparin 5,000 UNIT/ML VIAL SQ SCH ×2 (09:08→20:06)
[2017-01-03] MEDS: 0.9 % Sodium Chloride 1,000 ML IVC SCH ×2 (09:47→20:05)
--- NOTE | 2017-01-03 11:30 | Internal Med Progress Note ---
Date of Encounter: 01/03/17 Time of Encounter: 10:45 - Assessment and plan (1) Acute kidney injury superimposed on CKD Current Visit: Yes Status: Acute Assessment and plan: Problem renal function. Patient still has poor by mouth intake. Will continue IV hydration for today. Follow renal function closely. (2) Adult failure to thrive Current Visit: Yes Status: Acute Assessment and plan: Improving oral intake. Continue to encourage. (3) Dehydration Current Visit: Yes Status: Acute Assessment and plan: Continue IV hydration. (4) Generalized weakness Current Visit: Yes Status: Acute Assessment and plan: Physical therapy. (5) Stage II pressure ulcer of buttock Current Visit: Yes Status: Acute Assessment and plan: Local wound care. Pressure ulcer prophylaxis. Frequent turning. We will arrange for follow up with wound clinic as outpatient. Qualifiers: Laterality: right Qualified Code(s): L89.312 - Pressure ulcer of right buttock, stage 2 - Subjective Interval history: Patient is doing well today. He is eating better. Daughter is present at bedside. Patient denies any complaints at this time. No pain reported. No nausea or vomiting. - Constitutional Vitals: Temp Pulse Resp BP Pulse Ox 98.1 F 61 16 108/67 96 01/03/17 11:17 01/03/17 11:17 01/03/17 11:17 01/03/17 11:17 01/03/17 11:17 General appearance: Present: cooperative, A&O X 2, pleasant, obese - Respiratory Respiratory exam: Present: CTAB. Absent: accessory muscle use, rales, rhonchi, wheezes - Cardiovascular Cardiovascular exam: Present: RRR, +S1, +S2. Absent: diastolic murmur, gallop, rubs, systolic murmur - GI/Abdominal GI/Abdominal exam: Present: normal bowel sounds, soft, no peritoneal signs. Absent: distended, tenderness - Extremities Exam Extremities exam: Present: warm, radial pulses palpable and symetrical. Absent : calf tenderness, cyanotic, pedal edema Internal Medicine: Result - Labs CBC & Chem 7: 01/03/17 06:15 01/03/17 06:15 Labs: Short CBC 01/02/17 01/03/17 Range/Units 00:56 06:15 WBC 15.1 H 9.1 (4.3-11.1) K/mcL Hgb 11.0 L 10.7 L (11.5-15.4) g/dL Hct 34.2 L 32.7 L (35.3-44.9) % Plt Count 503 H 437 H (140-400) K/mcL Neutrophils # 11.3 H 5.1 (1.6-8.9) K/mcL BMP 01/02/17 01/03/17 00:56 06:15 Sodium 132 L 137 Potassium 3.2 L 3.3 L Chloride 91 L 99 Carbon Dioxide 26 28 BUN 60 H 38 H D Creatinine 2.98 H 1.91 H Glucose 179 H 79 Calcium 9.6 9.0 Cardiac Enzymes 01/02/17 Range/Units 11:19 Troponin I 0.03 (0-0.03) ng/mL - Impressions Impressions Retroperitoneum Ultrasound 01/02/17 18:00 IMPRESSION: Unremarkable ultrasound of the kidneys and urinary bladder. D/ / Renan Bernabe MD / Renan Bernabe MD Interpreting Provider: Renan Bernabe MD Consult Discharge Plan - Plan Referrals: NO,PCP [Primary Care Provider] - - Attending Attestation This document has been at least partially created by [employer] recognition technology by Dr. Blankenship. Errors in grammar, wording or other phrases may exist. If errors are found after the documentation is signed, they will be addressed individually in the addendum section of this document when appropriate.
--- NOTE | 2017-01-03 14:29 | Nephrology Progress Note ---
Date of Encounter: 01/03/17 Time of Encounter: 09:15 - Assessment and Plan (1) Acute kidney injury superimposed on CKD Current Visit: Yes Status: Acute Nonoliguric BYRON consistent with prerenal etiology. Her labs from Sep had demonstrated CKD stage III. Would hold metformin and Losartan at this time. Follow a renal protective strategy: avoid NSAIDs, Bactrim, Contrast and dose renally cleared Rx by GFR. Strict I/Os and daily weights. Thank you for consulting the [facility]. Will follow with you. (2) BYRON (acute kidney injury) Current Visit: Yes Status: Acute (3) Dehydration Current Visit: Yes Status: Acute (4) HTN (hypertension) Current Visit: Yes Status: Chronic Qualifiers: Hypertension type: essential hypertension Qualified Code(s): I10 - Essential (primary) hypertension Subjective Principal diagnosis: BYRON on CKD Interval history: Pt was s/e earlier today. She did not affirm N/V/D. She reported feeling much better today. Her daughter was at the bedside. The pt has plans to stay with the daughter after this discharge, she said. Objective - Vital Signs Vital signs: Vital Signs Temp Pulse Resp BP Pulse Ox 01/03/17 11:17 98.1 F 61 16 108/67 96 01/03/17 07:20 97.8 F 70 16 131/78 100 01/03/17 04:47 98.1 F 72 20 122/66 100 01/03/17 00:42 98.4 F 76 18 121/67 98 01/02/17 21:04 98.1 F 76 18 124/70 90 L 01/02/17 16:19 97.9 F 81 18 128/57 91 L Intake and Output 01/02/17 01/03/17 01/03/17 23:59 07:59 15:59 Intake Total 1300 / 1300 1000 / 1000 0 / 0 Output Total 1325 / 1325 0 / 0 Balance 1300 / 1300 -325 / -325 0 / 0 Intake: IV Fluids 1200 / 1200 1000 / 1000 0.9 % Sodium Chloride 1, 1000 / 1000 1000 / 1000 000 ML @ 100 mls/hr IVC . Q10H [facility] Rx#:[id number] Potassium Chloride 10 mEq 200 / 200 /100mL 10 meq In 100 ml @ 100 mls/hr IVPB Q1H [facility] Rx#:[id number] Oral 100 / 100 0 / 0 Output: Urine 1325 / 1325 0 / 0 Other: Percent of Meal Consumed 5% Stool Size Small Stool Consistency formed Stool Color Brown # Bowel Movements 1 Weight 72.575 kg Blood Glucose* 93 82 110 Patient Weight 01/03/17 23:59 Weight 72.575 kg - General Appearance General appearance: Present: well-developed, well-nourished, appears started age EENT: Present: ATNC, PERRL Neck: Present: supple Respiratory: Present: clear Cardiology: Present: regular rate, regular rhythm, normal S1, normal S2 Gastrointestinal: Present: normoactive bowel sounds, no tenderness, no guarding Integumentary: Present: no rash, warm and dry Neurologic: Present: no focal deficit, no asterixis Musculoskeletal: Present: no deformities, no clubbing Psychiatric: Present: mood/affect appropriate, cooperative - Lab 01/03/17 06:15 01/03/17 06:15 Most recent lab results Calcium 9.0 mg/dL (8.6-10.8) 01/03/17 06:15 Phosphorus 2.6 mg/dL (2.3-4.7) 01/02/17 00:56 Magnesium 1.7 mg/dL (1.6-2.6) 01/02/17 00:56 Urine Creatinine 140 mg/dL 01/01/17 21:15 Urine Sodium 49.0 mEq/L 01/01/17 21:15 Consult Discharge Plan - Plan Referrals: NO,PCP [Primary Care Provider] -
[2017-01-03] MEDS: Insulin DETEMIR 100 UNIT/ML X5UNITS SQ SCH (20:05)
[2017-01-04] MEDS: 0.9 % Sodium Chloride 1,000 ML IVC SCH (06:17)
[2017-01-04] MEDS: *HR* Heparin 5,000 UNIT/ML VIAL SQ SCH ×2 (06:19→18:11)
[2017-01-04 06:50] LABS: Calcium 8.8 mg/dL (8.6-10.8); Potassium 3.3 mEq/L (3.5-4.5)
[2017-01-04] MEDS: Insulin LISPRO 300 UNITS/3 ML VIAL SQ SCH ×4 (09:03→20:06)
--- NOTE | 2017-01-04 09:19 | Internal Med Progress Note ---
Date of Encounter: 01/04/17 Time of Encounter: 08:55 - Assessment and plan (1) Acute kidney injury superimposed on CKD Current Visit: Yes Status: Acute Assessment and plan: Continues to improve. Encourage by mouth intake. We will decrease IV fluids. (2) Adult failure to thrive Current Visit: Yes Status: Acute Assessment and plan: Improving. Family wants to take patient home with home health. pantry goods worker arranging for this. (3) Dehydration Current Visit: Yes Status: Acute (4) Generalized weakness Current Visit: Yes Status: Acute (5) Stage II pressure ulcer of buttock Current Visit: Yes Status: Acute Assessment and plan: Supportive care. No signs of infection. Decubitus ulcer prophylaxis. Local wound care. Qualifiers: Laterality: right Qualified Code(s): L89.312 - Pressure ulcer of right buttock, stage 2 - Subjective Interval history: The patient is awake and alert. Appears comfortable. Denies any new complaints at this time. Does have chronic generalized body aches from arthritis. - Constitutional Vitals: Temp Pulse Resp BP Pulse Ox 97.7 F 67 18 125/64 92 L 01/04/17 07:37 01/04/17 07:37 01/04/17 07:37 01/04/17 07:37 01/04/17 07:37 General appearance: Present: cooperative, A&O X 2, pleasant, obese - Respiratory Respiratory exam: Present: CTAB. Absent: accessory muscle use, rales, rhonchi, wheezes - Cardiovascular Cardiovascular exam: Present: RRR, +S1, +S2. Absent: diastolic murmur, gallop, rubs, systolic murmur - GI/Abdominal GI/Abdominal exam: Present: normal bowel sounds, soft, no peritoneal signs. Absent: distended, tenderness - Extremities Exam Extremities exam: Present: warm, radial pulses palpable and symetrical. Absent : calf tenderness, cyanotic, pedal edema - Neurological Exam Neurological exam: Present: alert, no focal deficits. Absent: facial droop, speech deficit Internal Medicine: Result - Labs CBC & Chem 7: 01/03/17 06:15 01/04/17 05:43 Labs: BMP 01/04/17 05:43 Sodium 137 Potassium 3.3 L Chloride 101 Carbon Dioxide 26 BUN 21 H D Creatinine 1.38 H Glucose 76 Calcium 8.8 Consult Discharge Plan - Plan Referrals: NO,PCP [Primary Care Provider] - - Attending Attestation This document has been at least partially created by [employer] recognition technology by Dr. Blankenship. Errors in grammar, wording or other phrases may exist. If errors are found after the documentation is signed, they will be addressed individually in the addendum section of this document when appropriate.
[2017-01-04] MEDS: Aspirin 81 MG TAB.CHEW PO SCH (09:59)
[2017-01-04] MEDS: amLODIPine 5 MG TABLET PO SCH (10:00)
--- NOTE | 2017-01-04 12:33 | Nephrology Progress Note ---
Date of Encounter: 01/04/17 Time of Encounter: 09:50 - Assessment and Plan (1) Acute kidney injury superimposed on CKD Current Visit: Yes Status: Acute Improving SCr and non-oliguric. Okay to decrease the 0.9% IVF as she has chronic LE edema Cont to hold Losartan and Metformin d/t the BRYON on CKD stage III This BYRON is consistent with prerenal etiology. Her labs from Sep had demonstrated CKD stage III. Would hold metformin and Losartan at this time. Follow a renal protective strategy: avoid NSAIDs, Bactrim, Contrast and dose renally cleared Rx by GFR. Strict I/Os and daily weights. Thank you for consulting the [facility]. After discharge, I rec she follow up with me in about 4-6 weeks. (2) BYRON (acute kidney injury) Current Visit: Yes Status: Acute (3) Dehydration Current Visit: Yes Status: Acute Improving. (4) HTN (hypertension) Current Visit: Yes Status: Chronic Qualifiers: Hypertension type: essential hypertension Qualified Code(s): I10 - Essential (primary) hypertension Subjective Principal diagnosis: BYRON on CKD Interval history: Pt was s/e earlier today. She did not affirm N/V/D. She reported feeling well. Objective - Vital Signs Vital signs: Vital Signs Temp Pulse Resp BP Pulse Ox 01/04/17 11:00 98.1 F 72 18 135/70 96 Intake and Output 01/03/17 01/04/17 01/04/17 23:59 07:59 15:59 Intake Total 120 / 120 Balance 120 / 120 Intake: Oral 120 / 120 Other: Meal Breakfast Percent of Meal Consumed 10% Blood Glucose* 80 - General Appearance Exam: General appearance: Present: well-developed, well-nourished, appears started age EENT: Present: ATNC, PERRL Neck: Present: supple Respiratory: Present: clear Cardiology: Present: regular rate, regular rhythm, normal S1, normal S2 Gastrointestinal: Present: normoactive bowel sounds, no tenderness, no guarding Integumentary: Present: no rash, warm and dry Neurologic: Present: no focal deficit, no asterixis Musculoskeletal: Present: no deformities, no clubbing Psychiatric: Present: mood/affect appropriate, cooperative - Lab 01/03/17 06:15 01/04/17 05:43 Most recent lab results Calcium 8.8 mg/dL (8.6-10.8) 01/04/17 05:43 Phosphorus 2.6 mg/dL (2.3-4.7) 01/02/17 00:56 Magnesium 1.7 mg/dL (1.6-2.6) 01/02/17 00:56 Urine Creatinine 140 mg/dL 01/01/17 21:15 Urine Sodium 49.0 mEq/L 01/01/17 21:15 Consult Discharge Plan - Plan Referrals: NO,PCP [Primary Care Provider] -
[2017-01-04] MEDS: Folic Acid 1 MG TABLET PO SCH (12:57)
[2017-01-04] MEDS: Insulin DETEMIR 100 UNIT/ML X5UNITS SQ SCH (20:06)
[2017-01-05 04:53] LABS: Calcium 8.8 mg/dL (8.6-10.8); Potassium 3.5 mEq/L (3.5-4.5)
[2017-01-05] MEDS: *HR* Heparin 5,000 UNIT/ML VIAL SQ SCH (06:28)
[2017-01-05 07:25] LABS: Complement Component 3 100 mg/dL (88-201); Complement Component 4 30 mg/dL (10-40)
[2017-01-05 07:37] LABS: ANA IgG by ELISA NONE DETECTED (None Detected)
[2017-01-05] MEDS: Insulin LISPRO 300 UNITS/3 ML VIAL SQ SCH ×2 (07:48→11:35)
[2017-01-05] MEDS: amLODIPine 5 MG TABLET PO SCH (09:11)
[2017-01-05] MEDS: Aspirin 81 MG TAB.CHEW PO SCH (09:11)
[2017-01-05] MEDS: Folic Acid 1 MG TABLET PO SCH (09:11)
--- NOTE | 2017-01-05 10:32 | Discharge Summary ---
Date of Encounter: 01/05/17 Time of Encounter: 10:30 - Discharge Diagnosis (1) Acute kidney injury superimposed on CKD Priority: Primary Status: Acute (2) Adult failure to thrive Priority: Secondary Status: Acute (3) Dehydration Priority: Secondary Status: Resolved (4) Generalized weakness Priority: Secondary Status: Acute (5) Stage II pressure ulcer of buttock Priority: Secondary Status: Acute Qualifiers: Laterality: right Qualified Code(s): L89.312 - Pressure ulcer of right buttock, stage 2 (6) Non-insulin dependent type 2 diabetes mellitus Priority: Secondary Status: Chronic - Discharge Medications Prescriptions: Folic Acid 1 mg PO DAILY #30 tablet Home Medications: Amlodipine [Norvasc] 5 mg PO DAILY 01/01/17 [History] Aspirin 81 mg PO DAILY 01/01/17 [History] Citalopram [CeleXA] 20 mg PO DAILY 01/01/17 [History] Ferrous Sulfate 325 mg PO BIDWM 01/01/17 [History] Furosemide [Lasix] 20 mg PO QMWF 01/01/17 [History] GlipiZIDE [Glipizide ER] 10 mg PO DAILY 01/01/17 [History] Metformin HCl [Glucophage] 1,000 mg PO DAILY 01/01/17 [History] Folic Acid 1 mg PO DAILY #30 tablet 01/05/17 [Rx] Allergies/Adverse Reactions: Allergies No Known Allergies Allergy (Verified 01/01/17 20:34) Date of admission: 01/04/17 07:38 Primary care physician: PCP NO Consults: 01/01/17 23:10 Consult to Wound Care [CONS] Routine Reason for Consult: Sacral/gluteal pressure wounds. Please evaluate and advise. Time Notified: 23:23 Call Completed: No 01/01/17 23:20 Consult to Occupational Therapy [CONS] Routine Comment: Evaluate, develop and implement POC Consult to Physical Therapy [CONS] Routine Comment: Evaluate, develop and implement POC 01/02/17 00:05 Consult to Kitchen Operator [CONS] Routine Reason for SW Consult: Discharge Planning 01/02/17 01:12 Consult to Exercise Instructor [CONS] Routine Comment: Consult to Nutrition [CONS] Routine Comment: Consulting Provider: NUTRITION Reason for Dietary Consult: Diet Education Supplemental Nutrition 01/02/17 08:53 Consult to Nephrology [CONS] Routine Consulting Provider: Kidney Spclst Valorie VIGIL/SOL Reason for Consult: BYRON Call Completed: Yes Discharging clinician: Joceline Blankenship Anticipated date of discharge: 01/05/17 - Patient Status Disposition: Home Health Service Condition: Good Functional capacity at discharge: wheelchair bound Overall status at discharge: patient is not back to baseline - Discharge Instructions Instructions: Folic Acid (By mouth), Hypokalemia (DC), Chronic Hypertension (DC ) Follow Up With: Abiel Chan MD [Partnered Physician] - 01/19/17 9:15 am (Please follow up as schedule...) Doni Carrizales DO [Non-Partnered Physician] - (Patient has an appointment on Jan.14 per family...) Jose F Mercado DO [Partnered Physician] - 02/12/17 3:10 am (Please follow up as schedule... Office at medical office building at [address]) Additional Instructions: Follow-up with wound care clinic for decubitus ulcers in 1-2 weeks - Diet and Activity Activity: as per physical therapy Diet: diabetic diet, low fat, low cholesterol, low salt diet Hospital course: Ms. Prescott is a 86 year old female with history of diabetes mellitus type 2, dementia, hypertension, arthritis and iron deficiency anemia and anemia who was brought in by family members with generalized weakness, decreased appetite and decubitus ulcers. She was previously in a snf by the patient was taken home by family members request form to have decubitus ulcers and there was concern about her care at the snf. She was also having some bleeding from her ulcers. She was evaluated here in the ER and then admitted to the hospital. Her ulcers did not show any signs of infection. Wound care was consulted. She also had acute kidney injury on presentation with a creatinine of 3.14. Nephrology was consulted. Patient recent dehydration with improvement in her renal function. Her creatinine currently is 1.2. Patient was also having poor appetite and was prior to presentation. This is now improving. At this time, the patient is clinically stable for discharge. She will be discharged home with home health and nursing care. wet room worker is making arrangements for this. She will follow up with wound care clinic for further management of her decubitus ulcers. - Time Spent with Patient Total time spent providing and/or coordinating discharge services: Greater than 30 minutes (35 min) - Constitutional Vitals: Temp Pulse Resp BP Pulse Ox 97.6 F 72 24 131/75 99 01/05/17 08:00 01/05/17 08:00 01/05/17 08:00 01/05/17 08:00 01/05/17 08:00 General appearance: Present: cooperative, A&O X 2, pleasant, obese - Respiratory Respiratory exam: Present: CTAB. Absent: accessory muscle use, rales, rhonchi, wheezes - Cardiovascular Cardiovascular exam: Present: RRR, +S1, +S2. Absent: diastolic murmur, gallop, rubs, systolic murmur - Extremities Exam Extremities exam: Present: warm, radial pulses palpable and symetrical. Absent : calf tenderness, cyanotic, pedal edema - Neurological Exam Neurological exam: Present: alert, no focal deficits. Absent: facial droop, speech deficit - Psychiatric Psychiatric exam: Present: normal affect, normal mood - Attending Attestation This document has been at least partially created by [employer] voice recognition technology by Dr. Blankenship. Errors in grammar, wording or other phrases may exist. If errors are found after the documentation is signed, they will be addressed individually in the addendum section of this document when appropriate.
--- NOTE | 2017-01-05 10:45 | Physician Discharge Referral ---
Home Health/Hosp Referral Info Transfer to: Home Health Provider in Charge Post Discharge: PCP - Diagnosis (1) Acute kidney injury superimposed on CKD Priority: Primary Status: Acute (2) Adult failure to thrive Priority: Secondary Status: Acute (3) Dehydration Priority: Secondary Status: Acute (4) Generalized weakness Priority: Secondary Status: Acute (5) Stage II pressure ulcer of buttock Priority: Secondary Status: Acute (6) Non-insulin dependent type 2 diabetes mellitus Priority: Secondary Status: Chronic - Respiratory Orders Smoking Cessation: Smoking cessation has been advised. For more information, call the [place] Tobacco Quit Line at 9-775-HEEM-NOW. - Diet/Nutrition Diet/Nutrition Orders: Cardiac, No Concentrated Sweets (Diabetic) - Activity Activity Orders: Walker - Services Needed Following services are medically necessary services: Nursing, Physical Therapy, Occupational Therapy Home Care Orders: Wound Care: cleanse buttock Stage 1 and Stage 2 pressure injuries with soap and water daily - rinse well with water and pat dry - apply Nutrashield barrier to skin and cover with Allevyn Multisite Foam Dressing as per policy - change daily - Transfer Medications Prescriptions: Folic Acid 1 mg PO DAILY #30 tablet Home Medications: Amlodipine [Norvasc] 5 mg PO DAILY 01/01/17 [History] Aspirin 81 mg PO DAILY 01/01/17 [History] Citalopram [CeleXA] 20 mg PO DAILY 01/01/17 [History] Ferrous Sulfate 325 mg PO BIDWM 01/01/17 [History] Furosemide [Lasix] 20 mg PO QMWF 01/01/17 [History] GlipiZIDE [Glipizide ER] 10 mg PO DAILY 01/01/17 [History] Metformin HCl [Glucophage] 1,000 mg PO DAILY 01/01/17 [History] Folic Acid 1 mg PO DAILY #30 tablet 01/05/17 [Rx] Allergies/Adverse Reactions: Allergies No Known Allergies Allergy (Verified 01/01/17 20:34) Certification: Further, I certify that my clinical findings support that this patient is homebound (i.e. absences from home require considerable and taxing effort and are for medical reasons or zoroastrianism services or infrequently or short duration when for other reasons) because: Homebound Reason: Patient requires assistance of a person or device to safely leave home Attestation: My signature below is to certify that this patient is under my care and that I, or nurse practitioner, or a physician's assistant program manager working with me, has a face-to -face encounter with this patient.
--- NOTE | 2017-01-05 11:14 | Nephrology Progress Note ---
Date of Encounter: 01/05/17 Time of Encounter: 09:15 - Assessment and Plan (1) Acute kidney injury superimposed on CKD Current Visit: Yes Status: Acute Improving SCr and non-oliguric and her renal function appears to be returning the baseline levels last seen in Sep. Cont to hold Losartan and Metformin d/t the BYRON on CKD stage III. I recommend a BMP in about 1-2 weeks and hospital follow up with me in about 4-6 weeks. This BYRON is consistent with prerenal etiology. Her labs from Sep had demonstrated CKD stage III. Would hold metformin and Losartan at this time. Follow a renal protective strategy: avoid NSAIDs, Bactrim, Contrast and dose renally cleared Rx by GFR. Strict I/Os and daily weights. Thank you for consulting the [facility]. (2) BYRON (acute kidney injury) Current Visit: Yes Status: Acute (3) Dehydration Current Visit: Yes Status: Resolved Improving. (4) HTN (hypertension) Current Visit: Yes Status: Chronic Stable off the losartan for now. Qualifiers: Hypertension type: essential hypertension Qualified Code(s): I10 - Essential (primary) hypertension Subjective Principal diagnosis: BYRON on CKD Interval history: Pt was s/e earlier today. She did not affirm N/V/D. She reported feeling well has plans to discharge to her daughter's home near [place]. I later returned to also talk with the daughter, who had arrived at about 10:30am. Objective - Vital Signs Vital signs: Vital Signs Temp Pulse Resp BP Pulse Ox 01/05/17 09:30 96 01/05/17 08:00 97.6 F 72 24 131/75 99 01/05/17 06:39 97.7 F 68 16 144/83 99 01/05/17 05:05 97.4 F L 66 18 146/79 100 01/05/17 01:27 97.7 F 70 16 127/70 97 01/04/17 20:06 97.1 F L 72 18 140/54 98 01/04/17 15:14 98 F 75 22 127/68 98 Intake and Output 01/04/17 01/05/17 01/05/17 23:59 07:59 15:59 Intake Total 170 / 170 1485 / 1485 Output Total 250 / 250 700 / 700 0 / 0 Balance -80 / -80 -700 / -700 1485 / 1485 Intake: IV Fluids 1005 / 1005 KCl 10 MEQ In 0.9 % 1005 / 1005 Sodium Chloride 1,000 ML @ 50 mls/hr IVC .[id number] [facility] Rx#:[id number] Oral 170 / 170 480 / 480 Output: Urine 250 / 250 700 / 700 0 / 0 Other: Meal Dinner Percent of Meal Consumed 5% Weight 78.199 kg Blood Glucose* 122 111 Patient Weight 01/05/17 23:59 Weight 78.199 kg - General Appearance General appearance: Present: well-developed, well-nourished, appears started age EENT: Present: ATNC, PERRL, mucous membranes moist Neck: Present: no JVD Respiratory: Present: clear Cardiology: Present: no edema, normal S1, normal S2 Gastrointestinal: Present: normoactive bowel sounds, no tenderness Integumentary: Present: warm and dry Additional Comments: She has a bedsore, per report Neurologic: Present: no focal deficit, no asterixis, alert and oriented x3 Musculoskeletal: Present: no deformities, no erythema, no cyanosis Psychiatric: Present: mood/affect appropriate, cooperative - Lab 01/03/17 06:15 01/05/17 04:08 Most recent lab results Calcium 8.8 mg/dL (8.6-10.8) 01/05/17 04:08 Phosphorus 2.6 mg/dL (2.3-4.7) 01/02/17 00:56 Magnesium 1.7 mg/dL (1.6-2.6) 01/02/17 00:56 Urine Creatinine 140 mg/dL 01/01/17 21:15 Urine Sodium 49.0 mEq/L 01/01/17 21:15 Consult Discharge Plan - Plan Instructions: Chronic Hypertension (DC) Additional Instructions: Follow-up with wound care clinic for decubitus ulcers in 1-2 weeks Referrals: Abiel Chan MD [Partnered Physician] - 01/19/17 9:15 am (Please follow up as schedule...) Doni Carrizales DO [Non-Partnered Physician] - (Patient has an appointment on Jan.14 per family...) Prescriptions: Folic Acid 1 mg PO DAILY #30 tablet
[2017-01-05 11:19] VITALS: BP 123/68
[2017-01-08 13:18] LABS: Alpha 2 Globulin (PEP) 0.9 g/dL (0.5-1.1); Beta Globulin (PEP) 1.3 g/dL (0.5-1.1)
== END 2017-01-05 13:58 | disposition home health service (06) | DRG 683 ==
LOC: 2ANU 20:28 → EMEROO 20:28 → SUATTDRO 22:30 → 2ANU 23:45
PROVIDERS: ADMIT Internal Medicine; ATTEND Internal Medicine